=== PATIENT | female | born 1995 | race Two or more races ===

== ENCOUNTER 2020-12-06 11:08 | Emergency (ER) | payer MEDICAID, OTHER ==
[~2020-12-06] VITALS: Ht 167.6 cm; Wt 104.3 kg
[2020-12-06 12:23] VITALS: BP 123/75
[2020-12-06] MEDS ORDERED: ACETAMINOPHEN 325 MG TAB PO ONE (12:45)
== END 2020-12-06 13:20 | disposition home or self-care (01) ==
LOC: ER 11:08
DX: O26.891 Other specified pregnancy related conditions, first trimester (principal); M25.562 Pain in left knee; Z3A.09 9 weeks gestation of pregnancy